=== PATIENT | female | born 1980 | race Caucasian/White ===

== ENCOUNTER 2016-07-06 11:55 | Day surgery (SDC) | payer OTHER ==
[~2016-07-06] VITALS: Ht 152.4 cm; Wt 108.0 kg
--- NOTE | 2016-07-06 07:09 | PCM.HPANE ---
Patient Data Surgeon Admitting Provider: Attending Provider:Alexandria Shukla MD Primary Care Physician:Jamarcus Echeverria MD Other Provider:Bird Champion Anesthesia Reason for Visit Hemorrhage Of Anus And Rectum, Gerd Ht/WT & BMI Body Mass Index Allergies Coded Allergies: amoxicillin (Verified Allergy, Unknown, stomach cramping, 07/06/16) clavulanic acid (Verified Allergy, Unknown, Stomach cramping, 07/06/16) lactose (Verified Allergy, Unknown, 07/06/16) Can tolerate cheeses, but no milk products Penicillins (Verified Adverse Reaction, Severe, GI UPSET, 07/06/16) FROM AUGMENTIN Past Anesthesia History Anesthesia History: Positive for:: Anesthesia Reactions (severe nausea and vomiting (for days)), Fam Anesthesia Reaction (mother nausea and vomiting (for days)), Denies:: Malignant Hyperthermia Diabetes History Hx Diabetes?: No MRSA MRSA: No Medications Reported Medications Topiramate 25 Mg Szhbwi27 Mg PO HS Ref 0 07/05/16 Sulfasalazine 500 Mg Tablet1,000 Mg PO BID 30 Days Ref 0 07/05/16 Prednisone (PredniSONE)10 Mg Tuduzj20 Mg PO DAILY Ref 0 07/05/16 Nystatin 1 Each Powder.ea.1 Each MC BID 07/05/16 Lorazepam 1 Mg Tablet1 Mg PO HS PRN For Insomnia Ref 0 07/05/16 Cetirizine HCl (Zyrtec)10 Mg Hzbhady42 Mg PO HS #30 CAPSULE Ref 0 09/23/15 Ranitidine (Zantac)150 Mg Agxbhd609 Mg PO DAILY 09/23/15 Lidocaine (Topicaine)113 Gm Gel..gram.113 Gm TP QID PRN For Pain 09/23/15 Propylene Glycol/Peg 400 (Systane Liquid Gel Eye Drops)15 Ml Drp.lq.gel15 Ml OP 4-6x daily 09/23/15 Albuterol HFA (Proair HFA)8.5 Gm Hfa.aer.ad2 Puffs INHALATION Q4H PRN For Shortness of Breath #1 INHALER 09/23/15 Ondansetron 4 Mg Tablet4 Mg PO BID PRN For Nausea 09/23/15 Omeprazole 40 Mg Capsule.dr40 Mg PO DAILY Ref 0 09/23/15 Magnesium Oxide (Magnesium)400 Mg Uchyscv673 Mg PO 2-3xdaily 09/23/15 Levothyroxine 50 Mcg Jxavkw61 Mcg PO DAILY Ref 0 09/23/15 Hypromellose (Genteal Severe)10 Gm Gel..gram.10 Gm OP HS 09/23/15 Estradiol (Estring)1 Each Vag.ring1 Each VG q90 days 09/23/15 Duloxetine 30 Mg Capsule.dr30 Mg PO BID Ref 0 09/23/15 Multivitamin (Multi Vitamin Daily)1 Each Tablet1 Each PO DAILY 30 Days Ref 0 09/23/15 Cyclobenzaprine 10 Mg Buhkhx74 Mg PO TID PRN Spasm 09/23/15 Butalbital/Acetamin/Caff 50-300-40 mg 1 Each Capsule1-2 Capsule PO Q4H PRN migraines Ref 0 MR- NTE 6 caps/24hr 09/23/15 Fluticasone Propionate (Fluticasone Propionate Nasal)16 Gm Redmon.susp1 Redmon NS BID PRN allergy sx #16 GM Ref 0 09/23/15 Amitriptyline 10 Mg Aqbrfu22-91 Mg PO HS Ref 0 09/23/15 Discontinued Reported Medications Nitrofurantoin Monohyd/M-Cryst (MacroBid)100 Mg Jnzsuno390 Mg PO BID Ref 0 07/05/16 Bupropion ER 150 Mg Tablet.er150 Mg PO BID Ref 0 09/23/15 Duloxetine (Cymbalta)60 Mg Capsule.dr60 Mg PO DAILY Ref 0 09/23/15 History History of ENT Problems?: Yes HEENT History: Positive for:: Cataracts (not yet surgically treated) Dysphagia (current thrush- taking nystatin - cleared for surgery by PCP) Sinus Problem (recent sinus infection with abx, cleared) Denies:: Hearing Problem (ear plugged- fluid building up) Hx of Heart Problems?: Yes Cardiovascular History: Denies:: AICD Abdominal Aortic Aneurism Atrial Fibrillation Cardiac Surgery Chest Pain Congestive Heart Failure Edema Heart Murmur Hypertension Irregular Heartbeat Pacemaker Rheumatic Fever Hx of Respiratory Problem?: Yes Respiratory History: Denies:: Asthma COPD Dyspnea Hemoptysis Oxygen Administration Pneumonia Pulmonary Embolism Use of C-PAP Machine Hx Neurologic Problems?: Yes Neurological History: Positive for:: Headaches (3x weekly) Denies:: CVA Dementia Multiple Sclerosis Parkinson's Disease Seizures Hx of GI Problems?: Yes Gastrointestinal History: Positive for:: Gastroesphageal Reflux Gastrointestinal Bleeding Heartburn Rectal Bleeding (diarrhea with bleeding- colonoscopy neg- IBS/D) Denies:: Cirrhosis Diverticulitis Hepatitis Hiatal Hernia Hx of Problems?: No Genitourinary History: Denies:: Kidney Stones Urinary Tract Infection Female Hx: Denies:: Currently Problems with Breasts? Skin History: Denies:: History Skin Disorders? Pressure Ulcers Hx Musculoskeletal Problems?: Yes Musculoskeletal History: Positive for:: Musculoskeletal Trauma (left foot current admission problem) Denies:: Back Injury Degenerative Joint Joint Replacement Systemic Lupus Hx of Psycho/Social Problems?: Yes Psycho Social History: Positive for:: Anxiety Hx Depression Hx Surgeries?: Yes (HYST/BSO, eliel, C section) Hx Any Other Health Problems?: Yes Other History: Positive for:: Thyroid Disease Denies:: Cancer Endocrine Disease Hospitalization History Blood Transfusions: Denies:: Blood Transfusions Hx Diabetes: No Hx Alcohol Use: YesHx Substance Use: Yes (medical marijuana- daily tincture at HS 2-3 wk) Smoking Status: Light Tobacco Smoker Unknown if Ever Smoker Have You Smoked inLast 12 mo: No Stop/Bang [place] Risk Assessment: Low Risk, <3 Yes Risk Assessment Category Category 1A: Patient has history of documented sleep apnea, and HAS NOT received any narcotic, sedative or anesthesia administration during this stay. Category 1B: Patient has history of documented sleep apnea, and HAS received any narcotic , sedative or anesthesia administration during this stay Category 2: Patient has SUSPECTED Obstructive Sleep Apnea, and HAS received any narcotic , sedative or anesthesia administration during this stay. Category 3: Patient has SUSPECTED Obstructive Sleep Apnea and HAS NOT received narcotic, sedative or anesthesia administration during this stay. Category 4: Outpatient in Procedural Areas with known sleep apnea or who screen positive for High Risk via the STOP/BANG questionnaire. Exam Exam General Appearance: Alert, Oriented X3, Cooperative, No Acute Distress HEENT/AIRWAY: MP 2 Lungs: Clear to Auscultation, Normal Air Movement Heart: Exam Unremarkable, Regular Rate/Rhythm, No Murmurs/Rubs/Gallops Plan Impression Patient chart reviewed, patient interviewed and anesthestic plan with risks, benefits, and alternatives discussed, and informed consent obtained. NPO Status: 0900 black coffee ASA Physical Status: ASA3 Severe Disease Anesthetic Plan: MAC Bene/Risks/Altern/Consents: Yes HP Complete Prior to Induction: Yes Anne Cali MD Jul 06, 2016 07:09
[~2016-07-06 11:55] MED LIST: ALBU8.5H2 INHALATION; AMIT10TA6 PO; AZU500 PO; BUPR150T12 PO; BUTA1CAP41 PO; CETI10CA PO; CYCL10TA9 PO; DULO30CA50 PO; DULO60CA42 PO; ESTR1VAG VG; FLUT16SP NS; HYPR10GE OP; LEVO50TA6 PO; LIDO113G3 TP; LORA1TAB PO; Lactated Ringer's 1,000 ML IV SCH; MAGN400C PO; MULT-1018 PO; NITR100 PO; NYST1POW23 MC; OMEP40CA36 PO; ONDA-53 PO; PRE10 PO; PROP15DR27 OP; RANI150T11 PO; TOPI-59 PO
[2016-07-06] MEDS ORDERED: fentaNYL-PF 50 mCg/mL 2 mL Inj ONE (11:56)
[2016-07-06] MEDS ORDERED: Propofol 10,000 mCg/mL 20 mL Inj ONE (11:56)
[2016-07-06 12:09] VITALS: BP 135/86; PULSE 100; RESP 14; O2SAT 97
[2016-07-06] MEDS ORDERED: Lactated Ringer's 1,000 ML IV SCH (13:03)
--- NOTE | 2016-07-06 13:03 | PCM.ANEP1 ---
Post Anesthesia Phase 1 PACU Phase 1 Assessment Vital Signs Vital Signs Date Time Temp Pulse Resp B/P Pulse Ox O2 Delivery O2 Flow Rate FiO2 07/06/16 12:09 36.7 100 14 135/86 97 Room Air Anesthetic Administered: MAC Level of Alertness: Awake, talking FICNH's with Equal Strength: Yes Pain: No Nausea or Vomiting: No Oxygen Delivery: Nasal Cannula Lungs: Clear to Auscultation, Normal Air Movement Anne Cali MD Jul 06, 2016 13:03
--- NOTE | 2016-07-06 13:04 | PCM.ANEP2 ---
Post Anesthesia Evaluation ASA/CMS Post Anesthesia VS in Patient's Normal Range?: Yes Resp Stable; Airway Patent?: Yes CV Function & Hydration Stable: Yes Mental Status Recovered?: Yes Pain control Satisfactory?: Yes N/V Control Satisfactory?: Yes Anne Cali MD Jul 06, 2016 13:04
[2016-07-06] MEDS ORDERED: MetoCLOpramide 5 mg/mL 2 mL Inj IVPUSH PRN (13:05)
[2016-07-06] MEDS ORDERED: Ondansetron 2 mg/mL 2 mL Inj IVPUSH PRN (13:05)
[2016-07-06 13:07] VITALS: BP 116/72; PULSE 99; RESP 16; O2SAT 98
[2016-07-06 13:17] VITALS: BP 118/73; PULSE 96; RESP 16; O2SAT 95
[2016-07-06 13:22] VITALS: BP 131/73; PULSE 90; RESP 18; O2SAT 97
--- NOTE | 2016-07-06 13:27 | ENDO ---
[address] [address] ENDOSCOPY PROCEDURE PATIENT: STEFFI GONZALEZ : 1980 MR#: [id number] ADMIT: 07/06/2016 JOB ID: [id number] DATE: 07/06/2016 PROCEDURE: Esophagogastroduodenoscopy. INDICATION: Gastroesophageal reflux. Please see anesthesia report for details regarding ASA classification, Mallampati score and medications. INSTRUMENT USED: GIF H 180 J. PROCEDURE DETAILS: After informed consent was obtained, the patient was brought into the GI suite, where she was placed on oxygen via nasal cannula and monitored with continuous pulse oximeter, telemetry and blood pressure monitoring. A time-out was performed. Then, she was placed in the left lateral decubitus position and medications were administered for sedation. A bite block was placed. The standard EGD scope was inserted through the bite block and advanced under direct visualization to the second portion of the duodenum without difficulty. IMPRESSIONS: 1. Normal appearing duodenal bulb, first and second portion. Multiple random biopsies were obtained to evaluate for the possibility of celiac disease. 2. Normal appearing pylorus. 3. The mucosa of the antrum and body of the stomach appeared normal. 4. Retroflexed views in the gastric body revealed a normal-appearing cardia and fundus. 5. Multiple random biopsies were obtained throughout the stomach. 6. The GE junction was at approximately 36 cm and appeared regular. There was mild erythema of the distal esophagus suggestive of mild esophagitis. 7. The remainder of the esophageal examination was otherwise unremarkable. IMPRESSION: Mild esophagitis otherwise normal examination to second portion of duodenum. RECOMMENDATIONS: 1. Continue PPI daily. 2. Proceed to colonoscopy. COMPLICATIONS: None. ESTIMATED BLOOD LOSS: Less than 5 mL. PROCEDURE PERFORMED: Colonoscopy. INDICATION: Rectal bleeding. Please see above for ASA classification, Mallampati score and medications. INSTRUMENTS USED: PCF H 180 AL. PREPARATION QUALITY: Was good. PROCEDURE DETAILS: After completion of the EGD examination, a digital rectal examination was performed, which was unremarkable. The colonoscope was then inserted into the rectum and advanced under direct visualization to the terminal ileum which was identified by the presence of the ileocecal valve and villous appearing mucosa of the terminal ileum. Once the terminal ileum was reached, the colonoscope was withdrawn back into the rectum as the mucosa and lumen were examined. In the rectum, retroflexion was performed. Following retroflexion, remaining air in the rectum was suctioned, and the procedure was completed. FINDINGS: 1. Normal appearing terminal ileum. Multiple random biopsies were obtained. 2. Scattered diverticula were seen throughout the left side of the colon. 3. Otherwise normal appearing mucosa from rectum to terminal ileum. IMPRESSION: Left-sided diverticulosis, otherwise normal examination. RECOMMENDATIONS: 1. Stool softeners as needed. 2. Suspect rectal bleeding secondary to benign anorectal disease. COMPLICATIONS: None. ESTIMATED BLOOD LOSS: Less than 5 mL.
--- NOTE | 2016-07-07 13:37 | PATH ---
SURGICAL PATHOLOGY Attending Physician:Matthew Garcia CASE STATUS: Signed Out PATIENT NAME: STEFFI OLIVARES PID: [id number] : 1980 DATE COLLECTED:07/06/2016 22:21 SPECIMEN: 1: Duodenum, Biopsy 2: Gastric, Biopsy 3: Ileum, Biopsy CLINICAL HISTORY: 1). DUODENAL BIOPSY 2). GASTRIC BIOPSY 3). TERMINAL ILEUM BIOPSY FINAL DIAGNOSIS: 1.DUODENAL BIOPSY: FRAGMENTS OF NORMAL-APPEARING DUODENUM MUCOSA. Normal delicate mucosal villi present. Negative for significant inflammation, dysplasia and malignancy. 2.GASTRIC BIOPSY: SUPERFICIAL MILD CHRONIC GASTRITIS INVOLVING FUNDIC MUCOSA. Negative for evidence of Helicobacter. Negative for intestinal metaplasia. Negative for dysplasia and malignancy. 3.TERMINAL ILEUM BIOPSY: FRAGMENTS OF NORMAL-APPEARING TERMINAL ILEUM MUCOSA. Negative for granulomas. Negative for significant inflammation, dysplasia and malignancy. ICD10 code K29.70 GROSS DESCRIPTION: The specimen is received in three formalin filled containers labeled with the patient's name. 1). The specimen is sublabeled "duodenal" and consists of 4 portions of tissue which aggregate to 0.4 x 0.4 x 0.3 CM. The specimen is entirely submitted in cassettes 1A. 2). The specimen is sublabeled "gastric" and consists of 3 portions of tissue which aggregate to 0.4 x 0.4 x 0.3 CM. The specimen is entirely submitted in cassette 2A. 3). The specimen is sublabeled "terminal ileum" are and consists of 2 portions of tissue which aggregate to 0.3 x 0.3 x 0.2 CM. The specimen is entirely submitted in cassette 3A. 07/06/2016 [facility] MICRO DESCRIPTION: See diagnosis. ICD-9 CODES: CPT CODES: 1: 84620 2: 77470 3: 30449 Electronically Signed Out Aidan Clark MD [facility] [address], [place] [address] Technical component performed at [facility], [facility] [address], [place], [address]
== END 2016-07-06 23:59 | disposition home or self-care (01) ==
LOC: END 11:55
PROVIDERS: ATTEND Internal Medicine Gastroenterology
DX: K62.5 Hemorrhage of anus and rectum (principal); K57.30 Diverticulosis of large intestine without perforation or abscess without bleeding; K21.9 Gastro-esophageal reflux disease without esophagitis; K29.50 Unspecified chronic gastritis without bleeding; K58.9 Irritable bowel syndrome, unspecified; E03.9 Hypothyroidism, unspecified; F41.8 Other specified anxiety disorders; E78.5 Hyperlipidemia, unspecified; F17.210 Nicotine dependence, cigarettes, uncomplicated; M06.9 Rheumatoid arthritis, unspecified; Z80.0 Family history of malignant neoplasm of digestive organs; Z86.010 Personal history of colon polyps
CPT/HCPCS: 43239; 45380; 88305; J2250; J3010; J7120